=== PATIENT | female | born 1960 | race Caucasian/White ===

== ENCOUNTER 2017-04-18 11:21 | Inpatient (IN) | payer OTHER ==
[2017-04-18] VITALS (8 sets, daily range): BP systolic 162–192; BP diastolic 84–98
[~2017-04-18] VITALS: Ht 165.1 cm; Wt 94.8 kg
[~2017-04-18 11:21] MED LIST: ALLOPURINOL 10100 M1 PO; ANTIVERT25 MG PO; ASPIR 8181 MG PO; CIPRO500 MG PO; CLONAZEPAM 0.50.5 M1 PO; COLCHICINE0.6 MG PO; COZAAR 50 MG TA50 M2 PO; CYMBALTA60 MG PO; GLIPIZIDE 10 MG10 MG PO; GLUCOPHAGE XR500 MG PO; GLUCOPHAGE XR750 MG PO; IBUPROFEN 200200 M1 PO; LIPITOR20 MG PO; NEURONTIN 300300 M1 PO; NORCO 5-325 TA1 EACH PO; TORADOL 10 MG T10 MG PO; ZANTAC 150MG T150 MG PO
[2017-04-18 11:54] LABS: ABSOLUTE BASOPHILS 0.1 thou/uL (0.0-0.2); ABSOLUTE EOSINOPHILS 0.2 thou/uL (0.0-0.7); ABSOLUTE LYMPHOCYTES 1.9 thou/uL (0.8-5.3); ABSOLUTE MONOCYTES 0.5 thou/uL (0.0-1.2); ABSOLUTE NEUTROPHILS 5.3 thou/uL (1.6-8.1); BASOPHILS 0.9 %; EOSINOPHILS 2.3 %; HEMATOCRIT 40.4 % (37.0-47.0); HEMOGLOBIN 13.2 gm/dL (12.0-15.0); LYMPHOCYTES 23.5 %; MCH 27.2 pg (26.0-34.0); MCHC 32.6 g/dL (28.0-37.0); MCV 83.3 fL (80.0-100.0); MONOCYTES 6.2 %; MPV 8.7 fl. (7.2-11.1); NUCLEATED RBCS 0 /100WBC; PLATELET COUNT* 270 thou/uL (150-400); POLYS 67.1 %; RBC 4.85 mil/uL (4.20-5.00); WBC 7.9 thou/uL (4.0-11.0)
[2017-04-18 12:02] LABS: ANION GAP 8 mmol/L (7-16); BUN 15 mg/dL (7-18); CALCIUM 9.4 mg/dL (8.5-10.1); CHLORIDE 102 mmol/L (98-107); CO2 30 mmol/L (21-32); CREATININE 0.8 mg/dL (0.6-1.3); GLUCOSE 181 mg/dL (70-99); POTASSIUM 4.2 mmol/L (3.5-5.1); SODIUM 140 mmol/L (136-145)
[2017-04-18 12:05] LABS: APTT 25.7 Seconds (25.0-31.3); PROTIME 9.7 Seconds (9.20-11.50)
[2017-04-18 12:21] LABS: ALBUMIN 3.8 g/dL (3.4-5.0); ALKALINE PHOSPHATASE 115 U/L (46-116); CK-MB MASS 0.9 ng/mL (<0.5-3.6); LIPASE 143 U/L (73-393); MAGNESIUM 1.4 mg/dL (1.8-2.4); NT-PRO BRAIN NAT PEPTIDE 43 pg/mL (<300); SGOT 17 U/L (15-37); SGPT 16 U/L (30-65); TOTAL BILIRUBIN 0.4 mg/dL (<0.1-1.0); TOTAL PROTEIN 8.3 g/dL (6.4-8.2); TROPONIN-I LEVEL <0.06 ng/mL (<0.06)
[2017-04-18 15:38] LABS: CHOLESTEROL 245 mg/dL (<200); HDL CHOLESTEROL 40 mg/dL (>40); TC:HDL 6.1 Ratio (Not establshd); TRIGLYCERIDE 507 mg/dL (<150); VLDL 101 mg/dL (<40)
[2017-04-18 15:40] LABS: SERUM ASSESSMENT CLEAR
--- NOTE | 2017-04-18 17:36 | CARD ---
[address] [address] CARDIAC CATH REPORT Name: MINDI OCHOA SUDHIR Room: [address] M.RDakotah#: [id number] Admission: 04/18/17 Attend Phys: Deo Cisneros MD Discharge: Date of : 56 Report #: [id number] THIS REPORT FOR: //name// APPROVED REPORT Patient Details Patient Status: In-Patient Room #: The patient is a 56 year-old female Event Personnel Joss Samuel Brake Drum Lathe Operator, Nayla Todd, Domenico Schulte (Avelino Rai Makenzie RN Freezer Machine Operator Procedures Performed Art Access - R radial artery , Left Heart Catheterization, Selective Right and Left Coronary Angiography Indication Unstable angina Risk Factors Arterial Hypertension, Hypercholesterolemia, Diabetes Admission/Lab Medications/Medications given during procedure Heparin Unfract. Procedure Narrative The patient was brought electively to the Cardiac Catheterization Laboratory and was prepped and draped in a sterile manner. The right wrist was infiltrated with 1% Lidocaine subcutaneous anesthesia. A Slender Glidesheath sheath was inserted into the right radial artery. Coronary angiography was performed using coronary diagnostic catheters. The right coronary system was accessed and visualized with a JR4 5fr catheter. The left coronary system was accessed and visualized with a JL 3.5 5fr catheter. The left ventricle was accessed and visualized with a PC: Angled Pig 5fr catheter. Left ventricular/Aortic Valve gradient assessed via catheter pullback. Left ventriculogram was performed in DONG projection. The patient tolerated the procedure well and there were no complications associated with the procedure. There was no hematoma. Intraoperative Conscious Sedation Sedation start time: 15:53 Case end Time: 16:11 Fentanyl 50 mcg Versed 4 [place] [address] CARDIAC CATH REPORT Name: MINDI OCHOA Room: [address]#: [id number] Admission: 04/18/17 Attend Phys: Deo Cisneros MD Discharge: Date of : 56 Report #: [id number] Fluoro Time: 3.0 minutes Dose: DAP 39738 cGycm2 923.73 mGy Contrast Type and Amount: Omnipaque 140 ml Coronary Angiography The patient's coronary anatomy is co- dominant. [place] Artery Percent Stenosis Left Main: 0 % Prox LAD: 0 % Mid/Distal LAD: 0 % Circumflex: 30 % RCA: 40 % Ramus: % Left Ventriculography The left ventricle is normal in size with normal contractility. The left ventricular ejection fraction is estimated to be 60-65%. Left ventricular wall motion abnormalities are not present. There is no mitral insufficiency. Hemodynamics The aortic pressure is 116/75 mmHg with a mean of mmHg. The left ventricular pressure is 117/1 mmHg with a mean of mmHg. The left ventricular end diastolic pressure is 10 mmHg. There was no gradient across the aortic valve upon pullback. Pullback from the left ventricle to the aorta revealed no gradient across the aortic valve. Conclusion 1. Minimal CAD 2. suspect noncardiac chest pain Recommendations Aggressive Medical Therapy <ELECTRONICALLY SIGNED> By: Joss Samuel MD, [facility] 04/18/17 1735 1735 [id number] Samuel MD, FAC /INF
--- NOTE | 2017-04-18 17:43 | EKG ---
[place] [address] ELECTROCARDIOGRAM REPORT Name: MINDI OCHOA Room: [address]R.#: [id number] Admission: 04/18/17 Attend Phys: Deo Cisneros MD Discharge: Date of : 56 Report #: [id number] THIS REPORT FOR: //name// [facility] ED Test Date: 2017-04-18 Test Time: 11:30:52 Pat Name: MINDI OCHOA Department: Room: [facility] Gender: F Aspnet Developer: Robert KOHLI : 1960 Requested By: Dre Miller Order Number: [id number] MD: Joss Samuel Measurements Intervals [place] Rate: 92 P: 17 IL: 165 QRS: 94 QRSD: 110 T: 42 QT: 386 QTc: 478 Interpretive Statements Sinus rhythm Probable left atrial enlargement Borderline right axis deviation Borderline low voltage, extremity leads Baseline wander in lead(s) II,aVR,aVF,V1,V2,V3,V4,V5,V6 Compared to ECG 04/05/2016 12:29:10 artifact noted Electronically Signed On 04-18-2017 17:43:09 DERMATOLOGIST MANAGING PARTNER by Joss Samuel [email or web address] <ELECTRONICALLY SIGNED> By: Joss Samuel MD, FACC 04/18/17 1743 1130 1130 Joss Samuel MD, [facility] /EPI
--- NOTE | 2017-04-18 18:58 | NUR ---
PT ARRIVE TO ROOM 221 AT APPROX 1635 FROM THE CATHLAB. PT DROWSY, C/O PAIN IN HEAD AND NAUSEA. PT HAD CATH DONE, RIGHT WRIST ACCESSED WITH VASC BAND IN PLACE. WRIST IS APPROPRIATE WITH NO HEMATOMA PRESENT. PTS BP ELEVATED, RECIEVED ORDER FOR HYDRALAZINE PRN. PT GIVEN PAIN MEDS AND NAUSEA MEDS WITH LITTLE RELIEF, PT UNABEL TO TELL RN WHERE SHE LIVES OR WHERE SHE CURRENTLY IS. DAUGHTER AT BEDSIDE, STATES PT HAS HAD ISSUES WITH PAIN MEDS BEFORE, SHE STATES "THEY MAKE HER(THE PT) FEEL WEIRD". PT UP TO BATHROOM WITH 1 ASSIST, SHE IS VERY UNSTEADY. FALL PRECATUINS IN PLACE. CALL LIGHT IN REACH. WILL CONTINUE TO MONITOR.
--- NOTE | 2017-04-18 22:00 | NUR ---
RECIEVED PT FROM [facility]. ASSESSMENT AND VS OBTAINED. PRECISION LATHE OPERATOR TRACING ST. PT IS RESPONSIVE IF YOU STERNAL RUB AND THEN ALL WORDS WERE SLURRED. PT HAS 02 AT 2 L WITH A SAT OF 89. WITH THE O2 SATS ARE 97. SEE CHARTING.
--- NOTE | 2017-04-18 22:56 | NUR ---
PT WOKE UP AND WAS THRASHING IN THE BED. AT THIS POINT PT HAD 4 SOFT RESTRAINTS AND SHE BROKE THE ONE ON HER R HAND. PT KEPT YELLING LET ME BE KEVIN, LET ME BE KEVIN. SPOKE TO DR ADAN AND RECIEVED ORDERS. WILL CON'T TO MONITOR.
--- NOTE | 2017-04-18 23:15 | NUR ---
PAGED DR SALEEM RE: PT'S TACHYCARDIA AND HIGH BP. AWAITING A CALL ABCK.
[2017-04-19] VITALS (29 sets, daily range): BP systolic 88–182; BP diastolic 46–91
[2017-04-19 00:05] LABS: AMP/METHAMP Negative (Negative); BARBITURATES Negative (Negative); BENZODIAZEPINES POSITIVE (Negative); COCAINE Negative (Negative); METHADONE Negative (Negative); OPIATES POSITIVE (Negative); PCP Negative (Negative); THC Negative (Negative)
--- NOTE | 2017-04-19 00:05 | NUR ---
ASSUMED CARE OF PT AT 1915. AT 1930, PT BECAME VERY ANXIOUS, STATING "HELP ME" PT STATED "I DON'T KNOW" TO ORIENTATION QUESTIONS. DENIED PAIN, STATED SHE WANTED DRINK OF WATER BUT REFUSED TO DRINK FROM CUP, ATTEMPTED TO GIVE PATIENT PO MEDICATIONS BUT PT VERY ANXIOUS AND BEGAN GETTING VERY AGGITATED, ATTEMPING TO PULL IV, ATTEMPTING TO CLIMB OUT OF BED, PT WOULD NOT LAY STILL FOR VITAL SIGNS TO BE TAKEN, ZACHARY REYNOSO CALLED, SECURITY AND SERVICE PORTER ARRIVED TO UNIT. PT RESTRAINED TO BED WITH SOFT RESTRAINTS FOR PT AND STAFF SAFETY, DR. ADAN NOTIFIED OF PT BEHAVIOR, NEW ORDERS RECEIVED AND IV MEDICATIONS ADMINISTERED. PT CONTINUED TO BE VERY AGGITATED. SERVICE PORTER SPOKE WITH DR. ADAN AND NEW ORDERS RECEIVED. PT MOVED TO ICU BED 2 AT 2200, REPORT GIVEN TO ANGELA WELDON.
--- NOTE | 2017-04-19 00:27 | NUR ---
PT BECOMING AGGRESSIVE AAND AGGITATED. ORDERED MEDS GIVE.
--- NOTE | 2017-04-19 00:30 | NUR ---
NO CALL BACK FROM DR SALEEM. PT'S HR STILL 120'S. BP 189/96. HYDRALIZINE GIVEN
--- NOTE | 2017-04-19 01:30 | NUR ---
PT HASN'T HAD ANY COMBATIVE, IMPULSIVNESS WITH THE ATIVAN AND HALDOL THATS ORDERED. REMOVED JOHN AND PLACED 4 POINT SOFT RESTRAINTS ON. WILL CON'T TO MONITOR.
--- NOTE | 2017-04-19 01:50 | NUR ---
PT STARTED HAVING PERIODS OF APNEA AND DESATING INTO THE 60'S. PT WAS BAGGED UNTIL SATS WERE IN THE 90'S. RT CALLED TO BEDSIDE. ABG WAS OBTAINED AND WAS AND O2 WAS IN THE 70'S INCREASED O2 TO 6L. WILL CON'T TO MONITOR.
[2017-04-19 02:17] LABS: BE -3.1 mmol/L (-2 to +3); HCO3 21.4 mmol/L (22.0-26.0); PCO2 36.4 mmHg (35.0-45.0); PO2 73.4 mmHg (75.0-100.0); pH 7.387 (7.340-7.450)
--- NOTE | 2017-04-19 02:57 | NUR ---
PT VERY RESTLESS, YELLING, AND TRYING TO BREAK THE SOFT RESTRAINTS. GAVE ORDERED ATIVAN AND HALDOL.
--- NOTE | 2017-04-19 03:00 | NUR ---
SPOKE WITH DR PETERS RE: PT'S TEMP BEING 102.8 WITH PREVIOUS TEMPS WERE NORMAL. ORDERS TO START THE SEPSIS PROTOCOL. ORDERS CARRIED OUT.
--- NOTE | 2017-04-19 03:20 | NUR ---
PT STILL THRASHING IN BED, YELLING AFTER THE HALDOL AND ATIVAN WASZ GIVEN. CALLED DR ADAN RE: PT CONDITION. CT HEAD ORDERED.
--- NOTE | 2017-04-19 03:40 | NUR ---
CT HEAD WAS OBTAINED.
--- NOTE | 2017-04-19 04:43 | NUR ---
PT WAS OFF THE MONITOR FROM [id number] HEAD
--- NOTE | 2017-04-19 04:44 | NUR ---
PT CURRENTLY IS CALM AND NOT THRASHING IN BED. PT IS CURRENTLY IN 4 PT SOFT RESTRAINTS. WAITING ON ALL BLOOD WORK THAT WAS OBTAINED.
[2017-04-19 04:47] LABS: MCH 26.8 pg (26.0-34.0); MCHC 32.2 g/dL (28.0-37.0); MCV 83.2 fL (80.0-100.0); MPV 9.2 fl. (7.2-11.1); RBC 3.96 mil/uL (4.20-5.00); RDW-CV 15.2 % (10.5-14.5); WBC 12.7 thou/uL (4.0-11.0)
--- NOTE | 2017-04-19 04:53 | NUR ---
PAGED DR SALEEM 04/18/17 AT 2315 FORTACHYCARDIA AND HYPERTENSION. NEVER RECIEVED A CALL BACK. WAS ABLE TO GIVE THE HYDRALAZINE 30 MINS LATER AND BP WENT DOWN. PT HAS REMAINED TACHY BUT WITH HAVING A FEVER THIS COULD BE THE REASON WHY.
[2017-04-19 04:55] LABS: HEMOGLOBIN 10.6 gm/dL (12.0-15.0)
[2017-04-19 04:56] LABS: ALBUMIN 3.2 g/dL (3.4-5.0); CALCIUM 8.3 mg/dL (8.5-10.1); CREATININE 1.2 mg/dL (0.6-1.3); POTASSIUM 3.8 mmol/L (3.5-5.1); TOTAL BILIRUBIN 0.4 mg/dL (<0.1-1.0)
[2017-04-19 04:59] LABS: URINE BILIRUBIN NEGATIVE (Negative); URINE BLOOD 2+ (Negative); URINE CLARITY CLEAR; URINE COLOR YELLOW; URINE GLUCOSE-RANDOM NEGATIVE (Negative); URINE KETONES 1+ (Negative); URINE LEUKOCYTES NEGATIVE (Negative); URINE LEUKOCYTES-REFLEX NEGATIVE (Negative); URINE NITRITE NEGATIVE (Negative); URINE NITRITE-REFLEX NEGATIVE (Negative); URINE PROTEIN TRACE (Negative); URINE UROBILINOGEN 0.2 E.U./dl (0.2-1.0)
[2017-04-19 05:11] LABS: APTT 25.3 Seconds (25.0-31.3)
--- NOTE | 2017-04-19 05:15 | NUR ---
PAGED DR ADAN RE: CXR RESULTS. HELD THE FLUID BOLUS PER SEPSIS PROTOCOL. WILL WAIT FOR DR ADAN TO CALL BACK.
[2017-04-19 05:21] LABS: CASTS None Seen /LPF (None Seen); CRYSTALS None Seen /LPF (None Seen); MUCUS 0-3 Light strn/LPF (None Seen); SQUAMOUS 4-10 Moderate /LPF (0-3); URINE RBC 3-10 Few /HPF (0-2); URINE WBC None Seen /HPF (0-5)
[2017-04-19 06:34] LABS: INFLUENZA A ANTIGEN None Detected (None Detect); INFLUENZA B ANTIGEN None Detected (None Detect)
[2017-04-19 07:37] LABS: PREALBUMIN 24.3 mg/dL (18.0-35.7)
--- NOTE | 2017-04-19 07:43 | NUR ---
0730 ASSUMED CARE OF PATIENT. SEE DOCUMENTED ASSESSMENT. PT RESTLESS IN RESTRAINTS. FOUL ODOR FROM MOUTH. IV RESTARTED WITH ASSIST OF TWO NURSES.
--- NOTE | 2017-04-19 09:17 | NUR ---
REMAINS RESTLESS. DR AVILA SAW PATIENT. SECOND IV REPLACED. CONTINUE TO ATTEMPT TO RE-ORIENT
--- NOTE | 2017-04-19 10:15 | NUR ---
DR HOLT TO SEE PATIENT. PT CAN VERBALIZE NAME AT TIMES. CALLED OUT FOR "PANDA".TOLD NURSING THAT "PANDA" IS HER DOG
--- NOTE | 2017-04-19 10:37 | NUR ---
Nutrition: Pt seen for nursing risk 2 points. Admitted for chest pain. Heart Healthy diet with CHO count. Per ICU rounds, pt is eating ice chips this morning. She is thirsty. She did eat well last NOC. In restraints. Metformin on hold. Alb 3.2, prealb 24.3, BG 178-230. Pt has fluid on lungs. Wt is fluctuating 230, 219, 224# up and down. H/o HTN, GERD, DM. No nutrition interventions needed today. Low nutrition risk.
--- NOTE | 2017-04-19 10:47 | NUR ---
PATIENT ABLE TO TELL ME HER NAME AND THAT SHE IS IN [place]
--- NOTE | 2017-04-19 10:52 | NUR ---
PT TRANSFERRED TO ICU LAST NIGHT, FEBRILE, VERY AGITATED OVERNIGHT. PT REMAINS IN RESTRAINTS FOR HER PROTECTION. NO FAMILY HERE AT THIS TIME.
--- NOTE | 2017-04-19 12:01 | NUR ---
SPOKE WITH DR MENDOSA REGARDING CONSULT. DAUGHTER HERE;PT WILL NOT ACKNOWLEDGE DAUGHTER
--- NOTE | 2017-04-19 14:16 | NUR ---
EEG COMPLETED.REMAINS RESTLESS. DAUGHTER AND GRANDDAUGHTER HERE
--- NOTE | 2017-04-19 16:10 | NUR ---
PATIENT CURRENTLY OUT OF RESTRAINTS AND ORIENTED X 2. FORGETS SHE HAS CATHETERAND TRIES TO GET UP. DR AVILA NOTIFIED
--- NOTE | 2017-04-19 16:35 | NUR ---
1600 DR AVILA UPDATED ON PT STATUS AND ORDERS NOTED
--- NOTE | 2017-04-19 17:47 | NUR ---
PATIENT PROGRESSIN TOWARDS GOALS. OUT OF RESTRAINTS AND SAFETY PROVIDED WITH SITTER. VSS. TITRATED OFF OF OXYGEN BUT HAS SIGNIFICANT SLEEP APNEA. URINE OUTPUT ADEQUATE. HAS NOT EATEN BUT HAS TAKEN WATER. MAGNESIUM REPLACED. EEG DONE. DAUGHTER AND COUSIN HAVE VISITED
[2017-04-20] VITALS (10 sets, daily range): BP systolic 111–152; BP diastolic 57–80
--- NOTE | 2017-04-20 07:30 | NUR ---
INITIAL ASSESTMENT COMPLETED. PT SITTING UP IN BED. PT CAN BE COMBATIVE AT TIMES. CURRENTLY CALM IN CHAIR WITH SITTER I ROOM. BILATERAL IV SITES WRAPPED IN [place].F/C PATENT FOR YELLOW URINE. PT DENIES ANY COMPLAINTS OF PAIN.
--- NOTE | 2017-04-20 07:47 | NUR ---
PATIENT WITH ONE ON ONE SITTER IN ROOM. PATIENT VOICED WANTING TO LEAVE AMA. SHE DOES NOT WANT TO BE HERE. PATIENT ORIENT TO PLACE. NSR, GOOD PULSES, RESTRAINTS OFF. PT ABLE TO SLEEP OVER NIGHT. CONTINUED TO DESAT SIMULTANEOUSLY WHILE SHE WAS SLEEPING. POSSIBLE SLEEP APNEA. WILL PASS ON REPORT. URINE OUPUT ADEQUATE. PT VERY AGITATED, ANXIOUS AND WANTS TO GO HOME. WILL CONTINUE TO MONITOR CLOSELY. HEMODYNAMICALLY STABLE NO ACUTE CHANGES OVER NIGHT.
--- NOTE | 2017-04-20 07:53 | CON ---
[address] [address] CONSULTATION Name: MINDI OCHOA Room: [address] ADM IN M.R.#: [id number] Admission: 04/19/17 Attend Phys: Deo Cisneros MD Discharge: Date of : 56 Report #: [id number] THIS REPORT FOR: //name// CC: Torres Cisneros DATE OF SERVICE: 04/19/2017 INFECTIOUS DISEASE CONSULTATION ATTENDING PHYSICIAN: Dr. Cisneros. REASON FOR EVALUATION: Encephalopathy and fevers. HISTORY OF PRESENT ILLNESS: Chart reviewed, the patient examined. This is a 56-year-old with a history of diabetes mellitus type 2 and also gout, who presented with chest-related pain and discomfort. It is notable that she has had a series of evaluations in the Emergency Room, at least 2 this year, one with complaints of headache and one with right elbow pain, diagnosed with suspected gout and has had several imaging studies, including CT of the head at least 3 times, all of which were fairly unremarkable, other than age-related changes. She is profoundly encephalopathic and unable to give too many details of the history, but apparently had 4-5 days of onset. It is not clear that she had any fevers preadmission, although she did develop a temperature of 102.8 over the course of the last 24 hours. Apparently complained of left shoulder pain and left neck pain, although this is not currently the problem. She had some nausea. Initial white count was normal. Chest x-ray initially was fairly unremarkable. A followup did raise a question of some early infiltrates. CT of the head which was done on admission again was unrevealing as was CT of the chest, excluding pulmonary embolus. Influenza antigen was negative. Lactic acid 1.0. Random cortisol of 16.9. She was evaluated by Dr. Nassar of Neurology, who was concerned about possible MANAGER FOOD process. Empirically started on ceftriaxone and azithromycin. ALLERGIES: None known. CURRENT MEDICATIONS: Include insulin, pantoprazole, azithromycin, ceftriaxone, duloxetine, atorvastatin, docusate sodium, aspirin, lorazepam, glipizide and p.r.n. analgesics and antiemetics. PAST MEDICAL HISTORY: As described above. Hypertension, elevated cholesterol, diabetes mellitus type 2, gout, depression, anxiety, previous cholecystectomy and left knee replacement. SOCIAL HISTORY: Nonsm[place] [address] CONSULTATION Name: MINDI OCHOA Room: [address] IN [facility]#: [id number] Admission: 04/19/17 Attend Phys: Deo Cisneros MD Discharge: Date of : 56 Report #: [id number] FAMILY HISTORY: Noncontributory. REVIEW OF SYSTEMS: Not reliably obtained. PHYSICAL EXAMINATION: GENERAL: She is quite restless, frequently moving in the bed. She does move her head freely, has a favor, not having meningismus on all 4 limbs. VITAL SIGNS: T-max 102.8, more recently 99.1; pulse 89; respirations 22 and blood pressure 119/75. SKIN: Warm, dry. No rashes. NECK: Supple. LUNGS: Few scattered crackles. HEART: Regular. I do not appreciate a murmur. ABDOMEN: Soft. Mildly distended. There is no apparent tenderness. There are no peritoneal signs. GENITOURINARY: Deferred. RECTAL: Deferred. LABORATORY DATA: Lactic acid 1.0. Influenza antigen was negative. Chest x-ray on repeat showed increasing lower lobe atelectasis and possible congestion. Urinalysis, no white cells. Electrolytes: Sodium 140, potassium 3.8, chloride 104, bicarbonate is 25, anion gap of 11 and BUN and creatinine 14 and 1.2. LFTs unremarkable. Albumin of 3.2. Total protein 7.0. Estimated GFR of 46. ABGs: pH of 7.387, pCO2 of 36.4 and pO2 of 73.4 on 6 liters. ASSESSMENT AND PLAN: Febrile illness, may complication; however, the underlying issue is certainly a risk for aspiration and may have early pneumonitis. Temperature seems to be trending down. We will check urinary antigen and continue empiric antimicrobial therapy, at least initiate therapy due to the fact that it is unlikely that we can get in a timely lumbar puncture due to her agitation. We will start empiric acyclovir as well and see how she does clinically. <ELECTRONICALLY SIGNED> By: Geovany Mustafa MD 04/20/17 0753 1544 [id number] Mustafa MD /nt
--- NOTE | 2017-04-20 08:36 | CON ---
[address] [address] CONSULTATION Name: MINDI OCHOA Room: [address] ADM IN M.R.#: [id number] Admission: 04/19/17 Attend Phys: Deo Cisneros MD Discharge: Date of : 56 Report #: [id number] THIS REPORT FOR: //name// CC: Torres Cisneros DATE OF SERVICE: 04/19/2017 HISTORY OF PRESENT ILLNESS: This is a 56-year-old female patient was unable to provide any history at all. I am unable to reach the family and would like to talk to them whenever I can reach them. I discussed the patient with the nurses and I talked to ID as well as admitting physician. This patient was admitted with the chest pain, but now this patient is basically unresponsive. She wakes up, does not follow command and is agitated. Nurses tell me intermittently she will become more cooperative. She was admitted with left shoulder blade pain and left-sided neck pain. She had some nausea and vomiting. There is some question of pneumonia. She was febrile. That is all the history I can get. REVIEW OF SYSTEMS: In this patient indicate that according to the records, she has migraine headache. She has diabetes and she had this chest and shoulder pain. They were suspecting angina, but I do not think any cause has been determined. This is all the 14-point review of system I can get. PAST MEDICAL HISTORY: Positive for hypertension, toxic encephalopathy. FAMILY HISTORY: Negative for early age stroke. SOCIAL HISTORY: Not available and I am not able to reach the family. PHYSICAL EXAMINATION: Extremely limited. She will not cooperate. She moves all 4 extremities. I cannot tell about meningeal sign. She does not appear to be in respiratory difficulty. Vital signs indicate that she was febrile and still temperature is 99.1. Blood pressure is 118/58, pulse is 90. LABORATORY DATA: Her white count is 12.7, which has increased since yesterday. Hemoglobin has fallen from 13.2-10.6. Her sodium is normal. Her magnesium is somewhat low. She did have a CT scan of the head, which does not show any acute abnormality. IMPRESSION: Very difficult to form in this patient, but the patient's presentation is concerning. She appeared to have some infection in some place, but even with that infection people do not become that much encephalopathic until they have some underlying neurology or psychiatric condition. Workup is going to be very difficult. If we need to do the workup like MRI or spinal tap, we need to put the patient on ventilator and even then it is going to be difficult because our monitoring [place] [address] CONSULTATION Name: MINDI OCHOA Room: [address] IN M.R.#: [id number] Admission: 04/19/17 Attend Phys: Deo Cisneros MD Discharge: Date of : 56 Report #: [id number] RECOMMENDATIONS: 1. I will try to get an EEG done. 2. I talked to ID. They are going to see this patient and decide about LP or at least putting this patient on presumptive diagnosis of meningitis or encephalitis. Still that can be excluded by an LP. 3. We will continue to talk to the family to see if she has any underlying history Thank you very much for this referral and we will try to dictate an addendum after we are able to talk to the family. Thank you very much for this referral. this addendum is being added at the time of signing this note. I talked to infectious disease and later on was able to reach the patient's daughter. This patient has not taken any of her medications for last 2 months because she could not afford that. She has been on psychiatric medications but she has not taken that because she cannot afford that. I reviewed the patient's records. It looks like the fever may have come after she received Haldol and may have been even drug fever. Infectious disease is addressing that and will defer to them. I checked out this patient to Dr. Escamilla and she will follow-up this patient with you and see what our workup can be done or possible in this patient. More than 50 minutes of time was spent taking care of this patient and majority of that time was spent counseling the family and coordinating her care my talking to other health home care companion <ELECTRONICALLY SIGNED> By: Nile Nassar MD 04/20/17 0836 [id number] [id number] Nassar MD /nt
--- NOTE | 2017-04-20 10:39 | EEG ---
[address] [address] EEG STUDY REPORT Name: MINDI OCHOA Room: [address] IN M.R.#: [id number] Admission: 04/19/17 Attend Phys: Deo Cisneros MD Discharge: Date of : 56 Report #: [id number] THIS REPORT FOR: //name// CC: Torres Cisneros DATE OF SERVICE: 04/19/2017 This patient's EEG was done by placing the electrodes by standard 10-20 system of electrode placement. Both referential and sequential montages were used for recording. Background activity in this patient's EEG is about 7 Hz and 30 microvolts. Photic stimulation is unremarkable. The patient is sleepy throughout the record, but no active epileptiform activity was noticed. IMPRESSION: This patient's EEG is intermixed with moderate amount of slowing on both sides. That is a nonspecific abnormality, which can occur with encephalopathy, effect of psychotropic medication, dementia, etc. Clinical correlation is recommended. Thank you very much for this referral. <ELECTRONICALLY SIGNED> By: Nile Nassar MD 04/20/17 1039 1636 [id number] Nassar MD /nt
--- NOTE | 2017-04-20 11:00 | NUR ---
PT SLIGHTLY MORE ALERT TODAY, STILL HAS 1:1 SITTER. NO FAMILY HERE AT THIS TIME. CASE MGT WILL CONTINUE TO FOLLOW.
--- NOTE | 2017-04-20 16:11 | NUR ---
REPORT GIVEN TO ALETHEA MILLER ON , [facility] HAD BEEN FAXED PRIOR. AWAITING TRANSPORT FROM . PT REMAINS ALERT AND ORIENTATED.
--- NOTE | 2017-04-20 16:20 | NUR ---
PT TRANSFERED VIA W/C WITH ALL PERSONAL BELONINGS, CHART , AND MEDS FROM [facility].
--- NOTE | 2017-04-20 18:12 | NUR ---
PATIENT TRANSFERED TO ROOM 201. BED IN LOW AND LOCKED POSITION. CALL LIGHT WITHIN REACH. FAMILY AT BEDSIDE. IV SALINE LOCKED. ON ROOM AIR. WILL CONTINUE TO MONITOR.
[2017-04-21] VITALS: BP 124/69
--- NOTE | 2017-04-21 01:54 | NUR ---
ASSUMED CARE OF PT AT 1900. PT IS ALERT AND ORIENTED. VSS. PERRLA. NO COMPLAINTS OF PAIN. UP WITH STAND BY ASSIST. PT IS SINUS RYTHM ON THE TELEMETRY. PT IS RESTING COMFORTABLY IN BED. RESPIRATIONS ARE EVEN AND NONLABORED. WILL CONTINUE TO MONITOR PT.
[2017-04-21 04:00] VITALS: BP 150/79
[2017-04-21 05:25] LABS: HEMATOCRIT 30.1 % (37.0-47.0); HEMOGLOBIN 9.8 gm/dL (12.0-15.0); MCH 27.3 pg (26.0-34.0); MCHC 32.6 g/dL (28.0-37.0); MCV 83.5 fL (80.0-100.0); RBC 3.6 mil/uL (4.20-5.00); RDW-CV 15.2 % (10.5-14.5); WBC 6.8 thou/uL (4.0-11.0)
[2017-04-21 05:46] LABS: ALBUMIN 2.8 g/dL (3.4-5.0); CALCIUM 8.2 mg/dL (8.5-10.1); CREATININE 0.7 mg/dL (0.6-1.3); TOTAL BILIRUBIN 0.3 mg/dL (<0.1-1.0); TOTAL PROTEIN 6.5 g/dL (6.4-8.2)
--- NOTE | 2017-04-21 07:20 | NUR ---
CHANGE OF SHIFT, BEDSIDE REPORT GIVEN ASSUMED PATIENT CARE PATIENT SEEN AT BEDSIDE, ASLEEP
[2017-04-21 08:00] VITALS: BP 124/75
--- NOTE | 2017-04-21 11:32 | NUR ---
Spoke with Pt. She is A&O. Resides at home with her niece. Independent with ADLs. No DME. No hx of HH or SNF. Goal is to return home at dc. No needs anticipated. Pt anticipates dc tomorrow.
[2017-04-21 13:03] VITALS: BP 118/61
--- NOTE | 2017-04-21 13:28 | CON ---
[address] [address] CONSULTATION Name: MINDI OCHOA Room: [address] IN M.R.#: [id number] Admission: 04/19/17 Attend Phys: Deo Cisneros MD Discharge: Date of : 56 Report #: [id number] THIS REPORT FOR: //name// CC: Torres Cisneros DATE OF SERVICE: 04/18/2017 HISTORY OF PRESENT ILLNESS: The patient is a 56-year-old single white female who was last seen in the Emergency room today after she complained of chest pain. The patient has no previous history of heart disease. However, recently she has not felt well. She has had intermittent aching on the left side of her chest or left arm, jaw. She felt short of breath, diaphoretic. She actually vomited. These symptoms tended to come and go over the last few days. She finally came to the Emergency Room today and was admitted. She denies any fever, cough, blood in her stool. She denied the pain being related to food. She has had no edema, palpitation or syncope. PAST MEDICAL HISTORY: Significant for cholecystectomy, tubal ligation, knee surgery, hypertension, diabetes. MEDICATIONS: Include metformin, glyburide, losartan. She is on a statin drug. ALLERGIES: She has no known drug allergies. FAMILY HISTORY: Her uncle of heart attack. SOCIAL HISTORY: She is from her , recently moved to [place] in [place], [place] where she used to work as a nurse's aide. She is now on disability because of depression. No smoking or alcohol abuse. REVIEW OF SYSTEMS: She has had no history of stroke. She does snore at night. No history of peptic ulcer disease, liver disease, kidney disease, cancer, chronic skin condition. Does have arthritis. PHYSICAL EXAMINATION: GENERAL: Revealed a middle-aged female, appeared in mild distress because of nausea. VITAL SIGNS: Blood pressure 170/80, pulse 80, she is afebrile. HEENT: She was anicteric, conjunctiva pink. Mucous members moist. NECK: Veins do not appear distended. No carotid bruits. Neck supple. CHEST: Clear to auscultation. CARDIAC: Regular rate and rhythm without murmur. ABDOMEN: Obese, soft, nontender. EXTREMITIES: Had no edema. Dorsalis pedis pulse 2+ bilaterally. SKIN: Warm, [place] [address] CONSULTATION Name: MINDI OCHAO Room: [address] IN [facility]#: [id number] Admission: 04/19/17 Attend Phys: Deo Cisneros MD Discharge: Date of : 56 Report #: [id number] NEUROLOGIC: Nonfocal. LYMPH: No adenopathy. MUSCULOSKELETAL: No joint effusion. LABORATORY DATA: Her ECG shows a sinus rhythm. There is no significant ST or T-wave change. Her workup in the Emergency Room today, she had portable chest x-ray that showed normal heart size, clear lung de la garza. CT scan of the chest using a PE protocol was negative for pulmonary embolus. CT scan of the head done a year ago here in the Emergency Room because of headaches, showed no acute abnormality. Lab work: Sodium 140, creatinine 0.8, glucose 181. Liver function studies normal. Troponin 0.06. Urine drug screen positive for opiates. White blood cell count 7.9, hemoglobin 13.2. IMPRESSION AND RECOMMENDATIONS: 1. Chest pain. Possible unstable angina. Recommend cardiac catheterization. 2. Hypertension. The patient has been on an ARB. 3. Diabetes. 4. Hyperlipidemia. The patient is on a statin drug. 5. Arthritis. <ELECTRONICALLY SIGNED> By: Joss Samuel MD, FACC 04/21/17 1328 [id number] Samuel MD, FACC /nt
[2017-04-21 16:00] VITALS: BP 126/62; BP 162/58
--- NOTE | 2017-04-21 18:56 | NUR ---
PATIENT REMAINS A AND O X 4 SR/ST LUNGS DIM/CTA/RA GOOD APPETITE LAST BM UNKNOWN GOOD UO REPORTED, UNSEEN UP WITH STANDBY R WR EDEMA 2+ NO C/O PAIN IV L FA 20 GA SL REF SCDS ACCUCHECKS 141/175/137 ABN LABS HGB 9.8, AST 61, ALT 22
[2017-04-22 00:27] VITALS: BP 132/70
--- NOTE | 2017-04-22 01:54 | NUR ---
ASSUMED CARE OF PT AT 1900. PT IS ALERT AND ORIENTED. VSS. PERRLA. NO COMPLAINTS OF PAIN. UP WITH STAND BY ASSIST. PT IS IN SINUS RYTHM ON THE TELEMETRY. PT IS RESTING COMFORTABLY IN BED. RESPIRATIONS ARE EVEN AND NONLABORED. WILL CONTINUE TO MONITOR PT.
[2017-04-22 03:58] VITALS: BP 132/75
[2017-04-22 05:36] LABS: HEMATOCRIT 30.3 % (37.0-47.0); HEMOGLOBIN 9.9 gm/dL (12.0-15.0); MCH 27.4 pg (26.0-34.0); MCHC 32.5 g/dL (28.0-37.0); MCV 84.2 fL (80.0-100.0); MPV 9.2 fl. (7.2-11.1); RBC 3.6 mil/uL (4.20-5.00); RDW-CV 14.9 % (10.5-14.5); WBC 5.6 thou/uL (4.0-11.0)
[2017-04-22 06:18] LABS: ALBUMIN 2.8 g/dL (3.4-5.0); CALCIUM 8.6 mg/dL (8.5-10.1); CREATININE 0.8 mg/dL (0.6-1.3); POTASSIUM 3.9 mmol/L (3.5-5.1); TOTAL BILIRUBIN 0.2 mg/dL (<0.1-1.0); TOTAL PROTEIN 6.5 g/dL (6.4-8.2)
--- NOTE | 2017-04-22 07:15 | NUR ---
CHANGE OF SHIFT REPORT GIVEN ASSUMED PATIENT CARE PATIENT SEEN AT BEDSIDE, ASLEEP
[2017-04-22 08:00] VITALS: BP 137/75
[2017-04-22 11:05] VITALS: BP 140/77
[2017-04-22] MEDS ORDERED: CYMBALTA60 MG PO (12:00)
[2017-04-22] MEDS ORDERED: ZANTAC 150MG T150 MG PO (12:00)
[2017-04-22] MEDS ORDERED: TORADOL 10 MG T10 MG PO (12:00)
[2017-04-22] MEDS ORDERED: VITAMIN B-12500 MCG PO (12:00)
[2017-04-22] MEDS ORDERED: CLONAZEPAM 0.50.5 M1 PO (12:00)
[2017-04-22] MEDS ORDERED: LIPITOR20 MG PO (12:00)
[2017-04-22] MEDS ORDERED: COLCHICINE0.6 MG PO (12:00)
[2017-04-22] MEDS ORDERED: LEVAQUIN 500 M500 M2 PO (12:00)
[2017-04-22] MEDS ORDERED: COZAAR 50 MG TA50 M2 PO (12:00)
[2017-04-22] MEDS ORDERED: GLUCOPHAGE XR500 MG PO (12:00)
[2017-04-22] MEDS ORDERED: GLIPIZIDE 10 MG10 MG PO (12:00)
[2017-04-22] MEDS ORDERED: NEURONTIN 300300 M1 PO (12:00)
[2017-04-22 13:54] VITALS: BP 140/77
--- NOTE | 2017-04-22 14:30 | NUR ---
PATIENT DCD TO HOME ALL DC INSTRUCTIONS GIVEN AND ACKNOWLEDGED AND SIGNED COPIES GIVEN IV REMOVED AND PESONAL BELONGINGS RETURNED PATIENT ASSISTED OUT AMBULATORY TO WAITING CAR
[2017-04-25 02:07] LABS: ADENOVIRUS Negative (Negative); INFLUENZA A Negative (Negative); INFLUENZA B Negative (Negative); METAPNEUMOVIRUS Negative (Negative); PARAINFLUENZA 1 Negative (Negative); PARAINFLUENZA 2 Negative (Negative); PARAINFLUENZA 3 Negative (Negative); RHINOVIRUS Negative (Negative); RSV A Negative (Negative); RSV B Negative (Negative)
== END 2017-04-22 14:35 | disposition home or self-care (01) | DRG 286 ==
LOC: M.ERS 11:21 → M.TBA-ER 13:47 → M.2W 16:34 → M.ICU 21:57 → M.2W 04-20 16:24
PROVIDERS: Emergency Medicine; Internal Medicine; Specialist; ADMIT Internal Medicine
PROC: 4A023N7 Measurement of Cardiac Sampling and Pressure, Left Heart, Percutaneous Approach (ICD-10-PCS; principal; 2017-04-19)
PROC: B2111ZZ Fluoroscopy of Multiple Coronary Arteries using Low Osmolar Contrast (ICD-10-PCS; principal; 2017-04-19)
PROC: B2151ZZ Fluoroscopy of Left Heart using Low Osmolar Contrast (ICD-10-PCS; principal; 2017-04-19)
DX: I25.10 Atherosclerotic heart disease of native coronary artery without angina pectoris (principal); G92 Toxic encephalopathy; J15.6 Pneumonia due to other Gram-negative bacteria; R65.10 Systemic inflammatory response syndrome (SIRS) of non-infectious origin without acute organ dysfunction; I10 Essential (primary) hypertension; E11.9 Type 2 diabetes mellitus without complications; M10.9 Gout, unspecified; F32.9 Major depressive disorder, single episode, unspecified; F41.9 Anxiety disorder, unspecified; M19.90 Unspecified osteoarthritis, unspecified site; E78.5 Hyperlipidemia, unspecified; E53.8 Deficiency of other specified B group vitamins; K21.9 Gastro-esophageal reflux disease without esophagitis; Z96.652 Presence of left artificial knee joint; Z90.49 Acquired absence of other specified parts of digestive tract; Z82.49 Family history of ischemic heart disease and other diseases of the circulatory system; Z79.899 Other long term (current) drug therapy